=== PATIENT | female | born 1995 | race Caucasian/White ===

== ENCOUNTER 2018-12-08 10:17 | Emergency (ER) | payer BC, SELFPAY ==
[2018-12-08 10:17] VITALS: BP 108/67; PULSE 96; RESP 18; TEMP 36.8; O2SAT 98; BMI 23.1
--- NOTE | 2018-12-08 10:38 | ED.VISSUMM ---
- ER Visit Summary Date of Service: 12/08/18 Chief Complaint: Headache History of Present Illness: The patient is a 23 F who presents with a headache that has been constant for the past 5 days. Patient states she was on vacation in [place] when the headache started. Patient states this is similar to prior migraine headaches. Patient states she went to an urgent care while she was there and received a dose of Imitrex. Patient states that this did not help. Patient was then seen in the emergency department in [place]. Patient states she had a CT scan done at that time which was normal. Patient states she was given Toradol and Zofran at that time. Patient states this has not helped. Patient admits to some photophobia and blurred vision. Patient also admits to some nausea and vomiting. Patient admits to subjective fevers but states her temperature was 99.1. Physical Examination: Vital signs are stable. Patient is afebrile. Patient is in no acute distress. Cranial nerves II through XII are intact. Strength is 5/5 bilaterally upper and lower extremities. There are no sensory deficits noted. Oral mucosa is pink and moist. Neck is supple. Trachea is midline. There is no JVD noted. Heart was regular rate and rhythm. Lungs are clear and equal bilaterally. Abdomen is soft and nontender. Emergency Department Course and Treatment: Patient was given IV fluids, Compazine, Benadryl, and Toradol. Patient felt better on reevaluation. Patient states her headache was nearly resolved. Patient was instructed to rest in a dark quiet room. Patient was instructed to drink plenty of fluids. Patient was given prescription for Reglan and a short course of oral Toradol. Patient was instructed to follow-up with her primary care physician in 5 to 7 days. Patient and family understood and were agreeable with the plan. All questions were answered. Disposition: Discharge home Impression: Migraine headache This note was generated with [employer] dictation software. It may contain incorrect words, spelling, and punctuation that were not noted in review of the chart prior to signing ED Disposition - Plan for ED Patient: Disposition: Home or Assisted Living Diagnosis: Migraine headache Instructions: ED, Migraine (Classical) Prescriptions: Metoclopramide [Reglan] 10 mg PO 4X/DAY PRN #20 tab PRN Reason: Headache Prescription Printed Ketorolac [Toradol] 10 mg PO Q6H #8 tab Prescription Printed Referrals: NOT,DEFINED [NON-STAFF] - 5-7 Days
[2018-12-08] MEDS: 0.9% Normal Saline 1,000 ML 999 ML IV (10:56)
[2018-12-08] MEDS: Ketorolac 30 MG/ML Syringe IV (10:56)
[2018-12-08] MEDS: proCHLORPERazine 10 MG/2 ML Vial IV (10:56)
[2018-12-08] MEDS: DiphenhydrAMINE 50 MG/ML Syringe 25 MG IV (10:56)
[2018-12-08 12:18] VITALS: BP 105/69; PULSE 61; RESP 14; O2SAT 100
== END 2018-12-08 12:19 | disposition home or self-care (01) ==
PROVIDERS: Emergency Provider Emergency Medicine
DX: G43.909 Migraine, unspecified, not intractable, without status migrainosus (principal); J45.909 Unspecified asthma, uncomplicated; Z79.899 Other long term (current) drug therapy
CPT/HCPCS: 96361; 96374; 96375; 99283; J7030